=== PATIENT | female | born 1970 | race Caucasian/White ===

== ENCOUNTER 2023-03-31 14:38 | Emergency (ER) | payer MEDICARE, MEDICAID ==
[2023-03-31 15:29] VITALS: O2SAT 99
[2023-03-31 15:38] LABS: BASOPHILS % (AUTO) 0.6 %; EOSINOPHILS # (AUTO) 0.2 10^3/uL (0.0-0.7); EOSINOPHILS % (AUTO) 6.2 %; HCT - HEMATOCRIT 39.1 % (37.0-47.0); HGB - HEMOGLOBIN 12.5 g/dL (12.0-16.0); LYMPHOCYTES # (AUTO) 1.1 10^3/uL (1.5-3.5); LYMPHOCYTES % (AUTO) 32.9 %; MEAN CORPUSCULAR HEMOGLOBIN 27.2 pg (27.0-31.0); MEAN CORPUSCULAR VOLUME 85.2 fL (81.0-99.0); MEAN PLATELET VOLUME 10.7 fL (7.9-10.8); MONOCYTES # (AUTO) 0.4 10^3/uL (0.0-1.0); MONOCYTES % (AUTO) 13.5 %; NEUTROPHILS # (AUTO) 1.5 10^3/uL (1.5-6.6); NEUTROPHILS % (AUTO) 46.5 %; PLT - PLATELET COUNT 99 10^3/uL (130-450); RED BLOOD COUNT 4.59 10^6/uL (4.20-5.40); RED CELL DISTRIBUTION WIDTH 14.9 % (12.0-15.0); WHITE BLOOD COUNT 3.3 x10^3/uL (4.8-10.8)
[2023-03-31 15:42] LABS: BILIRUBIN,URINE NEGATIVE (NEGATIVE); GLUCOSE, URINE (UA) NEGATIVE (NEGATIVE); KETONES,URINE (UA) NEGATIVE (NEGATIVE); LEUKOCYTE ESTERASE, URINE NEGATIVE (NEGATIVE); NITRITE,URINE NEGATIVE (NEGATIVE); OCCULT BLOOD,URINE MODERATE (NEGATIVE); PH,URINE 6.5 PH (5.0-7.5); PROTEIN,URINE 100 mg/dL (NEGATIVE); UROBILINOGEN,URINE 0.2 (NORMAL) E.U./dL (NORMAL)
[2023-03-31 15:44] LABS: CLARITY,URINE CLEAR (CLEAR)
[2023-03-31 15:48] LABS: WBC,URINE 0-3 /HPF (0-5)
[2023-03-31 15:48] LABS: ALBUMIN 3.8 g/dL (3.2-5.5); ALBUMIN/GLOBULIN RATIO 0.7 (1.0-2.2); BILIRUBIN,TOTAL 0.3 mg/dL (0.2-1.0); CALCIUM 9.4 mg/dL (8.5-10.3); CREATININE 0.9 mg/dL (0.6-1.3); POTASSIUM 3.8 mmol/L (3.5-4.5); TOTAL PROTEIN 9.1 g/dL (6.4-8.9)
[2023-03-31 15:49] LABS: BACTERIA,URINE Few /HPF (None Seen); RBC,URINE 0-5 /HPF (0-5); SQUAMOUS EPITHELIAL CELL,UR FEW Squamous (<= Few)
[2023-03-31] MEDS ORDERED: NALBUPHINE 10 MG/ML AMP IVP STA (15:57)
--- NOTE | 2023-03-31 16:02 | ED Physician Documentation ---
History of Present Illness - Stated complaint Stated Complaint: URQ PX,NAUSEA,POOL - Chief complaint Chief Complaint: Abd Pain - History obtained from History obtained from: Patient - History of Present Illness Timing: Chronic Pain level max: 8 Pain level now: 8 - Additonal information Additional information: Patient is a 52-year-old female who presents to the emergency department stating that she has chronic right upper quadrant abdominal pain from her liver cirrhosis. She states that she recently moved here from [place]. She states that her GI doctor left the clinic 2 to 3 years ago and has not seen a GI doctor since. Her primary care provider is in [place]. She states she is not on any medications at home. She states she has right upper quadrant pain every day. She states that this she has continued right upper quadrant pain today. Had a cholecystectomy 6 years ago. She states her hepatitis C is "gone". She states that she is left with cirrhosis from the hep C. No fevers. No chills. No vomiting. Nothing makes it better or worse. She states that she does not know what she can take for pain because she is allergic to opioids, they cause vomiting. Review of Systems Constitutional: denies: Fever, Chills GI: denies: Vomiting, Diarrhea : denies: Dysuria, Frequency, Hesitancy Skin: denies: Rash Musculoskeletal: denies: Neck pain, Back pain Neurologic: denies: Headache PD PAST MEDICAL HISTORY - Allergies Allergies/Adverse Reactions: Allergies Allergy/AdvReac Type Severity Reaction Status Date / Time Opioids - Morphine Analogues Allergy Emesis Verified 03/31/23 14:42 PD ED PE NORMAL - Vitals Vital signs reviewed: Yes - General General: Alert and oriented X 3, No acute distress - HEENT HEENT: PERRL - Neck Neck: Supple, no meningeal sign - Cardiac Cardiac: RRR, Strong equal pulses - Respiratory Respiratory: No respiratory distress, Clear bilaterally - Abdomen Abdomen: Soft, Non distended, Other (Mild tenderness to palpation right upper quadrant without peritoneal signs. o/w benign exam) - Back Back: No CVA TTP, No spinal TTP - Derm Derm: Warm and dry - Extremities Extremities: No deformity - Neuro Neuro: Alert and oriented X 3 - Psych Psych: Normal mood, Normal affect Results - Vitals Vitals: Vital Signs - 24 hr 03/31/23 03/31/23 03/31/23 14:42 15:27 17:08 Temperature 36.8 C Heart Rate 88 58 L 74 Respiratory 16 15 18 Rate Blood Pressure 150/90 H 101/58 L 147/78 H O2 Saturation 98 99 99 Oxygen O2 Source Room air - Labs Labs: Laboratory Tests 03/31/23 03/31/23 03/31/23 15:21 15:21 15:23 WBC 3.3 L RBC 4.59 Hgb 12.5 Hct 39.1 MCV 85.2 MCH 27.2 MCHC 32.0 RDW 14.9 Plt Count 99 L MPV 10.7 Neut # (Auto) 1.5 Lymph # (Auto) 1.1 L [place] # (Auto) 0.4 Eos # (Auto) 0.2 Baso # (Auto) 0.0 Absolute Nucleated RBC 0.00 Nucleated RBC % 0.0 Sodium 134 L Potassium 3.8 Chloride 103 Carbon Dioxide 28 Anion Gap 3.0 L BUN 15 Creatinine 0.9 Estimated GFR (MDRD) 65 L Glucose 80 Calcium 9.4 Total Bilirubin 0.3 AST 37 ALT 31 Alkaline Phosphatase 68 Total Protein 9.1 H Albumin 3.8 Globulin 5.3 H Albumin/Globulin Ratio 0.7 L Lipase 57 Urine Color YELLOW Urine Clarity CLEAR Urine pH 6.5 Ur Specific [place] 1.020 Urine Protein 100 H Urine Glucose (UA) NEGATIVE Urine Ketones NEGATIVE Urine Occult Blood MODERATE H Urine Nitrite NEGATIVE Urine Bilirubin NEGATIVE Urine Urobilinogen 0.2 (NORMAL) Ur Leukocyte Esterase NEGATIVE Urine RBC 0-5 Urine WBC 0-3 Ur Squamous Epith Cells FEW Squamous Urine Bacteria Few Ur Microscopic Review INDICATED Urine Culture Comments NOT INDICATED PD Medical Decision Making - ED course Complexity details: reviewed results, re-evaluated patient, considered differential, d/w patient, d/w family ED course: Patient with chronic liver, cirrhosis and chronic right upper quadrant, abdominal pain. She states that she has had multiple imaging studies, including CT scans, ultrasounds, etc. She does not want to undergo any imaging today. There are no significant laboratory abnormalities. The patient's pain resolved with a dose of Nubane.She is very well appearing, non-toxic. Afebrile. We will have her follow up with her doctor for further care. She states that she does not do well with oral pain medication, therefore, we will not prescribe oral pain medication for home at this time. Patient counseled regarding signs and symptoms for which I believe and urgent re-evaluation would be necessary. Patient with good understanding of and agreement to plan and is comfortable going home at this timeThis document was made in part using voice recognition software. While efforts are made to proofread this document, sound alike and grammatical errors may occur. Departure - Departure Disposition: Home, Self Care Clinical Impression: Abdominal pain Qualifiers: Abdominal location: unspecified location Qualified Code(s): R10.9 - Unspecified abdominal pain Condition: Good Instructions: ED Abdominal Pain Female Non-Specific Abdominal Pain Follow-Up: your,doctor in 1 week [Other] Comments: Please follow-up with your doctor for further care. Your laboratory testing does not show any acute abnormalities today. You were given a dose of Nubain here that seemed to work quite well for your pain. Unfortunately it does not come in an oral formulation. You can talk to your doctor about pain control for home. Forms: PCP List Discharge Date/Time: 03/31/23 17:08
[2023-03-31 17:15] VITALS: BP 147/78
== END 2023-03-31 17:08 | disposition home or self-care (01) ==
LOC: ED 14:38
DX: R10.11 Right upper quadrant pain (principal)
CPT/HCPCS: 36415; 80053; 81001; 83690; 85025; 96374; 99283; J2300; 81003; 87086